=== PATIENT | male | born 1940 | race Caucasian/White ===

== ENCOUNTER → 2017-10-24 | Outpatient (CLI) | payer OTHER ==
[~2017-10-24] VITALS: Ht 167.6 cm; Wt 97.2 kg
[~2017-10-24] MED LIST: AMLO10TA2 PO; ATOR40TA16 PO; CHLORHEXIDINE GLUCONATE 2 % 1 PACK (2 CLOTHS) TOPICAL PRN; GLIP10TA6 PO; INSU1INJ13 SQ; LACTATED RINGER'S 1000 ML IV PRN; LEVO175T2 PO; LIDOCAINE HCL 1% PF 5 ML SYRINGE OTHER ONE; LORA0.5T PO; METOPROLOL TARTRATE 25 MG TAB PO PRN; NOVOINJ3 SQ; PANT40TA3 PO; POVIDONE IODINE 5% (ANTISEPSIS KIT) 4 APPLICATIONS EACH NARE PRN; PROPOFOL 200 MG/20 ML AMP IV ONE; SODIUM CHLORID 0.9% 500 ML IV PRN; TAMS0.4C4 PO; VITA100064 PO
--- NOTE | 2017-10-24 10:42 | GIPROC ---
[facility] [address] [facility]. [facility], [address] FLEXIBLE SIGMOIDOSCOPY PROCEDURE REPORT EXAM DATE: 10/24/2017 PATIENT NAME: Julio Mcqueen MR #: [id number] BIRTHDATE: 1940 ORDER #: [id number] ATTENDING: Alondra Soliz MD APPRAISER REAL ESTATE: Radha Newberry and Lukas Saleh STATUS: outpatient INDICATIONS: The patient is a 77 yr old male here for a flexible sigmoidoscopy due to hematochezia PROCEDURE PERFORMED: Flexible Sigmoidoscopy with ablation therapy MEDICATIONS: Per Anesthesia and None. ESTIMATED BLOOD LOSS: None CONSENT: The patient understands the risks and benefits of the procedure and understands that these risks include, but are not limited to: sedation, allergic reaction, infection, perforation and/or bleeding. Alternative means of evaluation and treatment include, among others: physical exam, x-rays, and/or surgical intervention. The patient elects to proceed with this endoscopic procedure. medical equipment was checked for proper function. Hand hygiene and appropriate measures for infection prevention was taken. After the risks, benefits and alternatives of the procedure were thoroughly explained, Informed consent was verified, confirmed and timeout was successfully executed by the treatment team. A digital rectal exam revealed external hemorrhoids The Pentax EG-[id number] endoscope was introduced through the anus and advanced to the sigmoid colon. The prep was good. The instrument was then slowly withdrawn as the colon was fully examined. COLON FINDINGS: A 5 x 3cm circumferential diffuse patch of abnormal mucosa was found in the rectum. The mucosa was friable, ulcerated and bleeding. Destruction of lesion via ablation was attempted. Bleeding from maneuver treated with cautery. Argon plasma coagulation was used. Care was given to ensure that the lumen was suctioned well. Retroflexed views revealed internal hemorrhoid The scope was then completely withdrawn from the patient and the procedure terminated. ADVERSE EVENTS: There were no complications. IMPRESSIONS: 1. 5 x 3cm circumferential diffuse abnormal mucosa was found in the rectum; The mucosa was friable, ulcerated and bleeding; Destruction of lesion via ablation was attempted 2. Retroflexed views revealed internal hemorrhoid 3. Revealed external hemorrhoids RECOMMENDATIONS: 1. Continue surveillance 2. Hydrocortisone supp 25mg TN bid x 07 days RECALL: Return 3 months Flexible Sigmoidoscopy Alondra Soliz MD eSigned: Alondra Soliz MD 10/24/2017 10:41 AM cc: Ramila Sanchez M.D.
[2017-10-24 10:46] VITALS: BP 125/63; PULSE 50; RESP 18; TEMP 97.7; O2SAT 98
--- NOTE | 2017-10-24 20:16 | EKG ---
Date Performed: 10/24/2017 Time Performed: 08:29:23 PTAGE: 77 years EKG: SINUS BRADYCARDIA INTRAVENTRICULAR CONDUCTION DELAY NONSPECIFIC ST & T-WAVE CHANGES NO PRIO R TRACING FOR COMPARISON ABNORMAL ECG NO PREVIOUS TRACING DOCTOR: Estephania Hayes Interpretating Date/Time 10/24/2017 20:15:33
== END ==
LOC: HSDC 08:03
PROVIDERS: ATTEND Internal Medicine Gastroenterology
DX: K62.7 Radiation proctitis (principal); K64.4 Residual hemorrhoidal skin tags; K64.8 Other hemorrhoids; K92.1 Melena; D64.9 Anemia, unspecified; E11.9 Type 2 diabetes mellitus without complications; K21.9 Gastro-esophageal reflux disease without esophagitis; R94.31 Abnormal electrocardiogram [ECG] [EKG]
CPT/HCPCS: 93005

== ENCOUNTER → 2017-11-29 | Day surgery (SDC) | payer MEDICARE ==
[~2017-11-29] MED LIST changes: -CHLORHEXIDINE GLUCONATE 2 % 1 PACK (2 CLOTHS) TOPICAL PRN; -LACTATED RINGER'S 1000 ML IV PRN; -LIDOCAINE HCL 1% PF 5 ML SYRINGE OTHER ONE; -METOPROLOL TARTRATE 25 MG TAB PO PRN; -POVIDONE IODINE 5% (ANTISEPSIS KIT) 4 APPLICATIONS EACH NARE PRN; -PROPOFOL 200 MG/20 ML AMP IV ONE; -SODIUM CHLORID 0.9% 500 ML IV PRN
== END | disposition home or self-care (01) ==
LOC: ESDC 10:20
PROVIDERS: ATTEND Internal Medicine Gastroenterology
DX: K62.5 Hemorrhage of anus and rectum (principal); Z53.9 Procedure and treatment not carried out, unspecified reason
CPT/HCPCS: 99211; G0463

== ENCOUNTER 2018-06-20 05:55 | Inpatient (IN) ==
[2018-06-20] MEDS ORDERED: Chlorhexidine Gluconate 2% 1 Pack (2 Cloths) TOPICAL ONE (06:28)
[2018-06-20] MEDS ORDERED: Metoprolol Tartrate 25 MG Tablet PO ONE (06:28)
[2018-06-20] MEDS ORDERED: Aspirin 325 MG Tablet PO SCH (06:30)
[2018-06-20] MEDS ORDERED: Sod Chloride 0.9% Inj 400 ML IV.SIG SCH (06:30)
[2018-06-20] MEDS ORDERED: Mupirocin 2% Nasal Oint Topical Syringe EACH NARE SCH (06:30)
[2018-06-20] MEDS ORDERED: Chlorhexidine Gluconate 2% 1 Pack (2 Cloths) TOPICAL SCH (06:30)
[2018-06-20] MEDS ORDERED: Sodium Chlor 0.9% Inj 500 ML IV.SIG SCH (07:00)
[2018-06-20] MEDS ORDERED: ceFAZolin 2 GM Premix Inj 2 GM/50 ML PIGGYBACK IV.SIG SCH (07:00)
[2018-06-20] MEDS ORDERED: Heparin 10,000 UNITS/10 ML Vial (for IV use) ONE (10:55)
[2018-06-20] MEDS ORDERED: Protamine Sulfate Inj 50 MG/5 ML Vial ONE (10:55)
[2018-06-20] MEDS ORDERED: Sodium Chlor 0.9% Inj 500 ML IV.CONT ONE (10:57)
[2018-06-20] MEDS ORDERED: Labetalol HCl Inj 100 MG/20 ML Vial IV.CONT ONE (10:57)
[2018-06-20] MEDS ORDERED: Phenylephrine/NS 1000 MCG/10ML Syringe IV.PUSH ONE (10:57)
[2018-06-20] MEDS ORDERED: Lidocaine PF 1% Inj 5 ML Syringe OTHER ONE (10:57)
[2018-06-20] MEDS ORDERED: Normosol-R pH 7.4 Inj 1,000 ML IV.CONT ONE (10:57)
--- NOTE | 2018-06-20 11:12 | MH ---
cc: Vidal Tidwell MD DATE OF ADMISSION: 06/20/2018 INDICATIONS: Severe aortic valve stenosis. HISTORY OF PRESENT ILLNESS: This is a 77-year-old gentleman, who follows with Dr. Hamm in the outpatient setting. The patient has prior history of renal cancer, diabetes, hypertension, and chronic kidney disease. The patient also has a history of progressive aortic valve stenosis. The patient recently had a development of right lower extremity pain, and was found to have occlusion of the right superficial femoral artery, and underwent percutaneous intervention at [facility]. Since then, he has done fairly well. He is now here for consideration of elective transcatheter aortic valve replacement. The patient had been evaluated by 2 cardiothoracic surgeons, and felt to be an intermediate risk for surgical aortic valve replacement. PAST MEDICAL HISTORY Aortic valve stenosis, diabetes, hypertension, renal cancer, chronic kidney disease, coronary artery disease, status post percutaneous coronary intervention; peripheral arterial disease, status post peripheral intervention. SOCIAL HISTORY: He quit smoking in 2011. Denies any alcohol or drug use. FAMILY HISTORY: Denies a family history of early coronary disease or sudden cardiac . REVIEW OF SYSTEMS: A 12-point review of system was performed, negative unless otherwise as mentioned in history of present illness. PHYSICAL EXAMINATION: VITAL SIGNS: Temperature is 98.2, pulse is 65, blood pressure is 179/82 mmHg. GENERAL: Alert and oriented x3, in no acute distress. HEENT: Shows pupils reactive to light and accommodation. Extraocular movements are intact. NECK: No jugular venous distention. No thyromegaly or lymphadenopathy. No carotid bruits. LUNGS: Clear to auscultation bilaterally. CARDIOVASCULAR: Regular with a 3/6 crescendo/decrescendo murmur ABDOMEN: Nontender, nondistended with good bowel sounds. No hepatosplenomegaly. EXTREMITIES: Show no clubbing, cyanosis or edema. Good peripheral pulses. NEUROLOGIC: Cranial nerves intact. Motor and sensory grossly intact. LABORATORY DATA: Hemoglobin 11.2, platelet count 160, white blood cell count 5.5. Sodium 136, potassium 4.4, BUN is 24, creatinine is 2.23. INR is 1.0. PREOPERATIVE EVALUATION: STS Score 5.8%. [place] [employer] functional class III symptoms. BMI 33.3. 2/4 frailty scoring. Electrocardiogram shows sinus arrhythmia with first-degree atrioventricular block. Pulmonary function test shows [id number] obstructive ventilatory defect with an FEV1 of 1.43. Echocardiogram, 04/03/2018 shows peak velocity 4.31 meters per second, mean gradient 44 mmHg, calculated valve area of 0.7 cm2. Ejection fraction 55%, aortic insufficiency, mild mitral regurgitation. Coronary angiography: Mid left anterior descending coronary artery was 70% to 80% stenosis, status post drug-eluting stent placement. Computed tomography analysis on 04/30/2018 shows short annulus diameter 20.6, longest diameter 38.3, and there were areas 471 mm2, sinus Valsalva 33.6 mm, sinotubular junction 28.3 mm. Left coronary height is 7.6 mm and right coronary height is 18.4 mm. Implant angle is EDGARD 0, caudal 0. Minimal luminal diameter right lower extremity 7.1 mm, left lower extremity 6.8 mm. ASSESSMENT: This is a 78-year-old gentleman with diabetes, renal and prostate cancer with a nephrectomy, chronic kidney disease, hypertension, peripheral arterial disease, coronary artery disease, status post percutaneous coronary intervention. The patient is considered intermediate risk for surgical aortic valve replacement. PLAN: We are going to plan for 26 mm Alamo S3 bioprosthetic valve implant from a right lower extremity access. We will do the best we can to minimize contrast administration. His sinuses appear to be generous, but his left main has slow clearance, so we potentially will consider protecting the left main. MD BRENDAN Iglesias/ , 10:41 AM , 10:55 AM
[2018-06-20] MEDS ORDERED: Sugammadex Inj 200 MG/2 ML Vial IV.PUSH ONE (12:22)
[2018-06-20] MEDS ORDERED: Iohexol Inj 350 MG/ML 100 ML Bottle (for RAD Diag) IVCONTRAST ONE (13:06)
--- NOTE | 2018-06-20 13:07 | P.OP ---
Date of procedure: 06/20/18 Anesthesia: GETA Surgeon: Florin Saldana MD Operation and Findings: PREOPERATIVE DIAGNOSIS: 1. Severe Symptomatic Aortic stenosis. 2. CHF 3. Mild aortic Insufficiency 4. Coronary artery disease status post PCI 5. Chronic kidney disease 6. Peripheral vascular occlusive disease POSTOPERATIVE DIAGNOSIS: Same OPERATION PERFORMED: 1. Transcatheter Aortic Valve Replacement (TAVR) with an Alamo 26 mm Cleve 3 Tissue Valve. 2. Balloon Aortic Valvuloplasty 3. Aortogram. 4. Percutaneous Left Femoral Vein Access and Bilateral Common Femoral Artery Access 5. Perclose closure of Right Common Femoral artery. 6. Vascade closure of Left Common Femoral artery and vein. 7. Fluoroscopy SURGEON: Florin Saldana MD CO-SURGEON: Vidal Tidwell MD MANAGER TALENT ACQUISITION SURGEON: Brandi Khoury MD CUSTOMER EXPERIENCE RETAIL CLERK: BLAKE Griggs MD ANESTHESIA: GETA PROCEDURE: The risks, benefits, complications, treatment options, and expected outcomes were discussed with the patient. The possibilities of reaction to medication, pulmonary aspiration, perforation of viscus, bleeding, recurrent infection, the need for additional procedures, failure to diagnose a condition, and creating a complication requiring transfusion or operation were discussed with the patient. The patient concurred with the proposed plan, giving informed consent. The site of surgery properly noted/marked. The patient was taken to the hybrid operating room and the procedure verified as Transcatheter Aortic Valve Replacement. A Time Out was held and the above information confirmed. Standard monitoring lines and Rodríguez catheter were placed. General anesthesia was induced. The patient was prepped and draped in a sterile fashion. Initially, the left femoral arterial and venous access was acquired using a Seldinger percutaneous technique. The details of this procedure were dictated under separate note by cardiology. Once a pigtail was positioned in the aortic annulus and a temporary transvenous pacemaker wire was placed in the right ventricular apex and tested, the right femoral artery was accessed using a needle followed by a guidewire under fluoroscopic guidance. The patient was heparinized and 2 Perclose devices deployed for later closure. Serial dilators were used to dilate the left femoral artery to 14 Greenlandic caliber. The Alamo sheath was then inserted into the external iliac artery up to the distal abdominal aorta. Arch aortography was performed to define the implant view. A balloon aortic valvuloplasty was then performed using a 23 x 4 balloon with rapid pacing. Given the preoperative findings of a low left main coronary ostia, it was decided to protect the left main. Therefore a 3.0 stent was parked in the LAD for later percutaneous access should there be compromise to the left main perfusion. A 26 Alamo Cleve 3 transcatheter aortic valve was then positioned in the annulus and deployed with the patient being rapidly paced. Following deployment, the valve apparatus was withdrawn and arch aortography and LUZ were performed to assess the valve. There appeared to be no compromise to the left main ostium or its perfusion and therefore the stent was withdrawn and removed. The valve had no perivalvular leak. Gradients were then measured and the sheath was removed while securing the Perclose sutures for hemostasis. Protamine was administered. The left arterial and Venous access sites were closed using the Vascade device. Sterile dressings were placed. At the end of the operation, all sponge, instruments, and needle counts were correct. The patient was transferred to the CVICU in stable condition. Findings: No PVL Implants: 26 Cleve 3 tissue valve Complications: None Disposition: to CVICU in stable condition
--- NOTE | 2018-06-20 13:26 | P.PCN ---
Date of procedure: 06/20/18 Pre-op diagnosis: severe aortic stenosis Procedure: Procedure: Transesophageal Echocardiography Diagnosis: Severe aortic stenosis Indications: Perioperative planning for transcatheter aortic valve replacement Consent: Obtained Anesthesia: General endotracheal anesthesia Description of the Procedure: The patient was sedated and mechanically ventilated. The echo probe was inserted easily and without resistance. At the conclusion of the procedure, the echo probe was removed. Please see detailed echocardiogram report for formal findings. Preliminary Findings (not confirmed): Pre-procedure: 1) mildly depressed LV EF, estimated at 45% 2) severe aortic stenosis 3) mild aortic regurgitation 4) mild mitral regurgitation 5) no pericardial effusion 6) No evidence of intra-atrial shunting by color flow Doppler, but questionably positive bubble study. Please see finalized echo report for further details. Post-procedure: 1) s/p successful placement of transcatheter aortic valve 2) no evidence of bioprosthetic valve stenosis 3) no perivalvular leak 4) no pericardial effusion 5) no regional wall motion abnormalities The patient tolerated the procedure well with no hemodynamic instability. There were no immediate complications noted. There was minimal EBL. I personally performed the procedure.
[2018-06-20] MEDS ORDERED: Labetalol HCl Inj 100 MG/20 ML Vial IV.PUSH PRN (13:34)
[2018-06-20] MEDS ORDERED: Dextrose 50% in Water 50 ML Vial IV.PUSH PRN (13:35)
--- NOTE | 2018-06-20 13:37 | P.CONCC ---
History of Present Illness Service: Critical Care Medicine Consult date: 06/20/18 Requesting Physician: Vidal Tidwell Reason for Consult: perioperative management of medical comorbidities Primary Care Provider: Charli Montes MD History of Present Illness: This is a 78-year-old male with chronic kidney disease and severe aortic stenosis who presents for transcatheter aortic valve replacement. He underwent uncomplicated procedure via groin access. He arrives to the CVICU in stable and extubated condition. Due to his somnolence arousing from anesthesia complete review of systems is unobtainable. Limited review of systems is negative for chest pain, shortness of breath, nausea, vomiting, sore throat, headache. Review of Systems unobtainable due to mental status PMFSH - History History Provided By: Patient - Tobacco History Second Hand Smoke Exposure: No Smoking Status: Former smoker - Alcohol History How Often Do You Have a Drink Containing Alcohol: Never Medications and Allergies Active Medications: Active Medications Aspirin (Aspirin) 325 mg PO BRIM CURLER ERIN Stop: 06/23/18 06:25 Last Admin: 06/20/18 07:01 Dose: Not Given Chlorhexidine Gluconate (Chlorhexidine 2% Cloth) 3 pack TOPICAL BRIM CURLER ERNI Stop: 06/23/18 06:25 Last Admin: 06/20/18 07:02 Dose: Not Given Cefazolin Sodium/Dextrose (Ancef 2 Gm Premix Inj) 2 gm in 50 mls @ 100 mls/hr IV.SIG ONCE ERIN Stop: 06/23/18 06:25 Last Infusion: 06/20/18 11:32 Dose: Infused Lactated Ringer's (Lr 1000 Ml Inj) 1,000 mls @ 30 mls/hr IV.SIG .Q24H ERIN Stop: 06/21/18 06:29 Last Admin: 06/20/18 07:00 Dose: Not Given Sodium Chloride (Ns Inj) 500 mls @ 30 mls/hr IV.SIG .Q10H [facility] Iohexol (Omnipaque 350 Inj) 45 ml IVCONTRAST ONCE ONE Stop: 06/20/18 13:07 Last Admin: 06/20/18 13:07 Dose: 45 ml Mupirocin (Bactroban 2% Nasal Oint) 1 applicatio EACH NARE BRIM CURLER ERIN Stop: 06/23/18 06:25 Last Admin: 06/20/18 07:02 Dose: Not Given Povidone Iodine (Betadine 5% Antisepsis Kit) 1 applicatio TOPICAL BRIM CURLER [facility] Stop: 06/23/18 06:25 Last Admin: 06/20/18 07:02 Dose: Not Given Allergies Allergy/AdvReac Type Severity Reaction Status Date / Time No Known Allergies Allergy Verified 06/20/18 06:49 Home Medications Medication Instructions Recorded Confirmed Type atorvastatin 40 mg PO DAILY 04/30/18 06/20/18 History glipizide 5 mg PO BID 04/30/18 06/20/18 History insulin aspart U-100 [Novolog 4 sliding scale dose SUBCUT TID 04/30/18 06/20/18 History Flexpen U-100 Insulin] insulin degludec [Tresiba 7 unit SUB-Q HS 04/30/18 06/20/18 History FlexTouch U-100] levothyroxine 175 mcg PO DAILY 04/30/18 06/20/18 History tamsulosin 0.4 mg PO DAILY 04/30/18 06/20/18 History aspirin [Aspir-81] 81 mg PO DAILY 06/08/18 06/20/18 History cholecalciferol (vitamin D3) 800 unit PO DAILY 06/08/18 06/20/18 History [Vitamin D3] clopidogrel 75 mg PO DAILY 06/08/18 06/20/18 History pantoprazole 40 mg PO DAILY 06/08/18 06/20/18 History amlodipine 10 mg PO DAILY 06/20/18 06/20/18 History lorazepam 0.5 mg PO DAILY 06/20/18 06/20/18 History Physical Exam Vital signs: Vital Signs 06/20/18 06:59 Temperature 36.8 C Pulse Rate 65 Respiratory Rate 18 Blood Pressure 179/82 H Pulse Oximetry 96 Intake & Output 06/19/18 06/20/18 06/20/18 18:59 06:59 18:59 Intake Total 1450 / 1450 Output Total 575 / 575 Balance 875 / 875 Weight 94.2 kg Intake: IV 50 / 50 Ancef 2 GM Premix Inj 2 gm In 50 / 50 50 ml @ 100 mls/hr IV.SIG ONCE [facility] Rx#:[id number] Anesthesia Amount 1400 / 1400 Output: Estimated Blood Loss 75 / 75 Urine Amount (Catheter) 500 / 500 Indwelling Temp Sensing 500 / 500 Catheter Other: Weight On Admission 94.6 kg Narrative: GENERAL: Frail elderly male, lying in bed, arousing from anesthesia HEENT: Normocephalic. Atraumatic. Pupils equal, round, reactive, conjugate. Mucous membranes are moist NECK: Trachea is midline. There is no JVD. right IJ introducer sheath with transvenous pacer in place, site is clean and dry, dressing intact. CHEST: unlabored. equal chest rise. nc o2. CARDIOVASCULAR: normal rate, regular rhythm. Transvenous pacer is set VVI at a backup rate of 50. not currently paced. ABDOMEN: Soft, nontender, nondistended. No guarding. MUSCULOSKELETAL: Pulses 2+. No peripheral edema. bilateral groin sites are clean and dry, no evidence of hematoma, dressing intact. distal LE pulses are Dopplerable. NEUROLOGICAL: RASS -2. Arousing from anesthesia. follows commands. moves all extremities. no focal deficits. - Urinary Catheter Management Indwelling Temp Sensing Catheter Cath placed during this visit: yes Reason for continuing: Hourly intake/output Insertion date: 06/20/18 Insertion time: 11:29 Assessment and Plan - Assessment and Plan Plan: Assessment: 78yM POD 0 s/p TAVR. admit to ICU for frequent neurovascular checks and close uop monitoring. S/p TAVR today via groin access - anticoagulation per fuse cutter - mivf - close uop monitoring - frequent neurovascular checks - frequent groin checks - OOB after flat time Hypertension - goal sbp < 180 - add back antihypertensives as needed Congestive Heart Failure secondary to valvulopathy - mivf today - may need diuresis beginning after POD 1 Chronic Kidney Disease, unknown stage - mivf - am bmp Diabetes - SSI - diabetic diet Hyperlipidemia - restart home statin BPH - restart flomax Hypothyroidism - restart home synthroid GERD - restart home ppi. advance diet after flat time SCDs AM CBC, BMP Critical care medicine will continue to follow while patient remains in the CVICU.
[2018-06-20] MEDS ORDERED: Morphine Sulfate Inj 2 MG/ML Vial IV.PUSH PRN (13:39)
[2018-06-20] MEDS ORDERED: Benzocaine/Menthol 15 MG/3.6 MG SF Lozenge BUCCAL PRN (13:39)
[2018-06-20] MEDS ORDERED: Acetaminophen 325 MG Tablet PO PRN (13:39)
[2018-06-20] MEDS ORDERED: Atropine Inj 1 MG/ML Vial IV.PUSH PRN (13:39)
[2018-06-20] MEDS ORDERED: fentaNYL Citrate Inj 100 MCG/2 ML Ampul ONE (13:44)
[2018-06-20] MEDS ORDERED: Sod Chloride 0.9% Inj 1,000 ML IV.CONT SCH (13:45)
[2018-06-20] MEDS ORDERED: Iohexol 350 MG/ML 50 ML Vial (for Cath Lab) IVCONTRAST ONE (13:52)
--- NOTE | 2018-06-20 14:06 | ECHRPT ---
Indication: CONCLUSIONS Mildly dilated left ventricle. Wall thickness is measured at the upper limits of normal. The left ventricular systolic function is low normal with an estimated ejection fraction in the rang e of 50- 55%. Mild thickening of the mitral valve leaflets. Trace mitral valve regurgitation. Trileaflet aortic valve. Aortic valve sclerosis is present. Diffuse calcification of the aortic valve. No aortic valve regurgitation. Severe aortic valve stenosis. status post transcatheter aortic valve replacement. BP: / HR: Rhythm: Technical Quality: Medications Complications Proc. Components FINDINGS LEFT VENTRICLE Mildly dilated left ventricle. Wall thickness is measured at the upper limits of normal. The left ventricular systolic function is low normal with an estimated ejection fraction in the rang e of 50- 55%. RIGHT VENTRICLE Normal right ventricular size and systolic function. LEFT ATRIUM The left atrial size is normal. RIGHT ATRIUM The right atrial size is normal. ATRIAL APPENDAGES Normal left atrial appendage size with no evidence of thrombus formation. ATRIAL SEPTUM Normal atrial septal thickness without atrial level shunting by limited color doppler interrogation. AORTA The aortic root and proximal ascending aorta are normal in size on limited imaging. MITRAL VALVE Mild thickening of the mitral valve leaflets. Trace mitral valve regurgitation. AORTIC VALVE Trileaflet aortic valve. Aortic valve sclerosis is present. Diffuse calcification of the aortic valve. No aortic valve regurgitation. Severe aortic valve stenosis. status post transcatheter aortic valve replacement. TRICUSPID VALVE Structurally normal tricuspid valve. No tricuspid valve stenosis or regurgitation. VESSELS The inferior vena cava is normal in size. PULMONARY VALVE The pulmonary valve is not well visualized. PERICADIUM No pericardial effusion. Vidal Tidwell MD, FACC (Electronically Signed) Final Date:20 June 2018 14:05
--- NOTE | 2018-06-20 14:09 | ECG ---
Date Performed: 06/20/2018 Time Performed: 06:14:46 PTAGE: 78 years EKG: Sinus arrhythmia. Left ventricular hypertrophy Nonspecific ST-T changes. Nonspecific ST-T c hanges are new. PREVIOUS TRACING : 06/08/2018 08.00 DOCTOR: Brandi Khoury M.D. Interpretating Date/Time 06/20/2018 14:08:11
--- NOTE | 2018-06-20 14:21 | P.PCN ---
Date of procedure: 06/20/18 Pre-op diagnosis: Severe aortic valve stenosis Procedure: mercerizer machine operator: Jett Tidwell MD Primary surgeon: Florin Saldana MD Cardiology second assist: Brandi Khoury MD Procedure performed: 1. Fluoroscopy with interpretation 2. Ascending aortography 3. Coronary angiography 4. Transesophageal echocardiogram 5. Transvenous temporary pacemaker placement 6. Aortic valvuloplasty 7. Transcatheter aortic valve replacement 8. Left heart catheterization Methods: Risks, benefits, and alternatives were discussed with the patient. Patient understood consented to the procedure. Both groins were prepped and draped in sterile fashion along with the chest wall. Left common femoral artery was accessed and a 6 Vincentian 11 cm sheath was placed without difficulty. Left femoral vein was accessed and a 5 Vincentian 11 cm sheath was placed without difficulty. Right common femoral artery was accessed with a micropuncture needle under fluoroscopic guidance. Digital subtraction angiography confirmed appropriate placement. An 8 Vincentian sheath was placed and upsized to a 16 Vincentian Alamo delivery sheath. Heparin was administered. Ascending aortography: A 5 Vincentian pigtail catheter was advanced to the ascending aorta. Ascending aortography was performed. All 3 aortic valve cusps were well visualized and put into parallax view. Transvenous temporary pacemaker placement: 6 Vincentian sheath was placed in the right internal jugular vein. A 5 Vincentian balloontipped temporary transvenous pacemaker was advanced to the right ventricular apex. Appropriate capture and pacing was confirmed. Transesophageal echocardiogram: See separate dictated report Coronary angiography: 1. Left main coronary is widely patent. 2. Left anterior descending coronary has stents present and are widely patent. Left coronary was selectively engaged with a 6 Vincentian XB LAD 3.5 guide catheter. 0.014 inch 180 cm Terumo run through wire was navigated down to the distal left anterior descending coronary artery. A 3.0 x 15 mm Rx resolute [place] drug-eluting stent was advanced into the left anterior descending coronary artery as a protective measure for potential left main coronary artery stenting , given the low takeoff for the left main off the left coronary cusp. Left heart catheterization: 6 Vincentian AL-1 catheters advanced descending aorta. A 0.035 inch Amplatz super stiff straight tip wire was advanced across the aortic valve without difficulty. The 6 Vincentian AL-1 catheter was advanced into the left ventricle. A standard 260 cm 0.035 inch J-wire was then advanced to the left ventricular apex. The AL-1 catheter was removed. A 5 Vincentian angled pigtail catheter was then advanced to the left ventricular apex and the standard J-wire removed. A 0.035 inch 260 cm [employer] Confida wire was then advanced to the left ventricular apex. The pigtail catheter was removed. Aortic valvuloplasty: A 23 x 40 mm Alamo aortic valvuloplasty balloon was then prepped and advanced over the wire. Under rapid pacing aortic valvuloplasty was performed. Repeat transesophageal echocardiogram showed moderate aortic valve insufficiency. The valvuloplasty balloon was then removed leaving the wire in place. Transcatheter aortic valve replacement: A 26 mm Alamo CP and S3 bioprosthetic valve was prepped. The device was advanced through the delivery sheath to the descending aorta. The balloon was pulled back into the stent. The stent was advanced over the arch in a flexed position and across the aortic valve. With rapid ventricular pacing and confirmation of appropriate placement by angiography through the guide catheter , the bioprosthetic valve was then slowly deployed. Repeat transesophageal echocardiography confirmed appropriate placement. No significant perivalvular leak was present. Selective angiography of the left main coronary artery showed no significant obstruction. The wire and coronary stent was then removed without deployment. The guide catheter was removed. The right common femoral artery 16 Vincentian sheath was then removed and 2 Perclose devices were deployed with good hemostasis. Two vascade devices were deployed successfully in the left common femoral artery and vein with good hemostasis. Conclusions: 1. Severe aortic valve stenosis 2. Successful aortic valvuloplasty 3. Successful transcatheter aortic valve replacement with bioprosthetic Alamo CP and S3 valve Plan: We will obtain a limited transthoracic echocardiogram. We will continue aspirin and Plavix. We will consult electrophysiology for evaluation. Heart rhythm was stable. Will monitor closely for any postprocedural complications Intraoperative post valve deployment transesophageal echocardiogram findings: 1. Post aortic valve area 3 cm square 2. Post implant mean aortic valve gradient 5 mmHg 3. Post implant peak velocity 1.696 cm/s 4. Aortic valve shows no insufficiency and no perivalvular leak
--- NOTE | 2018-06-20 15:22 | XR ---
EXAM DATE: 06/20/2018 1:41 PM EDT AGE/SEX: 78 years / Male INDICATIONS: Status post transcatheter aortic valve replacement. CLINICAL DATA: This is the patient's subsequent encounter. Patient reports that signs and symptoms h ave been present for 1 day and indicates a pain score of 0/10. MEDICAL/SURGICAL HISTORY: Hypertension. Diabetes mellitus type II. Nephrectomy, left. Periphe ral vascular stent. Coronary artery stent. COMPARISON: No prior exams available for comparison. FINDINGS: Central line in good position. Compensated cardiomegaly without overt failure. TAVR prosthesis eviden t. There is no pleural effusion or pneumothorax. Mild degenerative changes about both shoulders. CONCLUSION: Cardiomegaly without overt congestive failure. Electronically signed by: Elías Jain MD 06/20/2018 3:21 PM EDT
[2018-06-20 17:16] LABS: Calcium 7.6 mg/dL (8.5-10.1); Carbon Dioxide 27.8 meq/L (21.0-32.0); Potassium 3.8 meq/L (3.5-5.1)
[2018-06-20] MEDS: Insulin NovoLIN Regular Correctional Sugar Inj SQ SCH (18:07)
[2018-06-21] MEDS: Insulin NovoLIN Regular Correctional Sugar Inj SQ SCH ×3 (01:46→12:45)
[2018-06-21 05:19] LABS: Hematocrit 28.4 % (39.0-51.0); Hemoglobin 9.4 gm/dL (13.0-17.0); Mean Corpuscular HGB Conc 33.2 % (32.0-36.0); Mean Corpuscular Hemoglobin 27.9 pg (27.0-34.0); Mean Corpuscular Volume 84.1 fL (80.0-100.0); Mean Platelet Volume 7.8 fL (7.0-11.0); Platelet Count 105 th/mm3 (150-450); Red Blood Count 3.38 mil/mm3 (4.50-5.90); Red Cell Distribution Width 16.6 % (11.6-17.2)
[2018-06-21 05:43] LABS: Alanine Aminotransferase 19 U/L (12-78); Albumin 2.9 g/dL (3.4-5.0); Anion Gap 7 meq/L (5-15); Aspartate Aminotransferase 22 U/L (15-37); Blood Urea Nitrogen 20 mg/dL (7-18); Calcium 7.8 mg/dL (8.5-10.1); Carbon Dioxide 29.3 meq/L (21.0-32.0); Chloride 106 meq/L (98-107); Glomerular Filtration Rate 33 mL/min (>89); Glucose,Random 142 mg/dL (74-106); Potassium 4.3 meq/L (3.5-5.1); Sodium 142 meq/L (136-145)
[2018-06-21 05:46] LABS: Alkaline Phosphatase 108 U/L (45-117); Total Protein 6.4 g/dL (6.4-8.2)
[2018-06-21] MEDS ORDERED: Levothyroxine 75 MCG Tablet PO SCH (06:00)
[2018-06-21] MEDS ORDERED: Levothyroxine 100 MCG Tablet PO SCH (06:00)
--- NOTE | 2018-06-21 07:11 | P.PNCC ---
Subjective Subjective Remarks/Hospital Course: Hospital Course: This is a 78-year-old male with chronic kidney disease and severe aortic stenosis who presents for transcatheter aortic valve replacement. He underwent uncomplicated procedure via groin access. He arrives to the CVICU in stable and extubated condition. Due to his somnolence arousing from anesthesia complete review of systems is unobtainable. Limited review of systems is negative for chest pain, shortness of breath, nausea, vomiting, sore throat, headache. Subjective: 06/21: denies complaints. pain adequately controlled. no evidence of groin hematoma. was very intermittently paced via transvenous pacer yesterday- seen by Dr. Banuelos who turned down back-up rate, no more pacing events overnight. Objective Vital Signs / I&O: Vital Signs 06/20/18 06:59 06/20/18 14:00 06/20/18 15:00 Temperature 36.8 C 35.2 C L 35.2 C L Pulse Rate 65 60 62 Respiratory Rate 18 16 16 Blood Pressure 179/82 H Pulse Oximetry 96 98 98 06/20/18 16:00 06/20/18 19:00 06/20/18 20:00 Temperature Pulse Rate Respiratory Rate Blood Pressure Pulse Oximetry 98 99 92 L Intake & Output 06/20/18 06/20/18 06/21/18 06:59 18:59 06:59 Intake Total 2100 / 2100 1000 / 1000 Output Total 1175 / 1175 Balance 925 / 925 1000 / 1000 Weight 94.2 kg Intake: IV 450 / 450 1000 / 1000 NS Inj 1,000 ML @ 125 mls/hr IV 1000 / 1000 .CONT .Q8H ERIN Rx#:[id number] NS Inj 400 ML @ 200 mls/hr IV. 400 / 400 SIG .Q2H ERIN Rx#:[id number] Ancef 2 GM Premix Inj 2 gm In 50 / 50 50 ml @ 100 mls/hr IV.SIG ONCE ERIN Rx#:[id number] Oral 250 / 250 Anesthesia Amount 1400 / 1400 Output: Estimated Blood Loss 75 / 75 Urine Amount (Catheter) 1100 / 1100 Indwelling Temp Sensing 1100 / 1100 Catheter Other: Date of Last Bowel Movement 06/19/18 Weight On Admission 94.6 kg Result Diagrams: 06/21/18 04:20 06/21/18 04:20 Objective Remarks: GENERAL: Frail elderly male, lying in bed, no acute distress. HEENT: Normocephalic. Atraumatic. Pupils equal, round, reactive, conjugate. Mucous membranes are moist NECK: Trachea is midline. There is no JVD. right IJ introducer sheath with transvenous pacer in place, site is clean and dry, dressing intact. CHEST: unlabored. equal chest rise. nc o2. CARDIOVASCULAR: normal rate in the 70s, regular rhythm. Transvenous pacer is set VVI at a backup rate of 35. not currently paced. ABDOMEN: Soft, nontender, nondistended. No guarding. MUSCULOSKELETAL: Pulses 2+. No peripheral edema. bilateral groin sites are clean and dry, no evidence of hematoma, dressing intact. distal LE pulses are Dopplerable. NEUROLOGICAL: RASS 0. awake, alert. follows commands. moves all extremities. no focal deficits. Assessment and Plan - Assessment and Plan Plan: Assessment: 78yM POD 1 s/p TAVR. once pacer rate turned down, no more pacer spikes- likely just slow [place] ventricular rate. no evidence by telemetry of AV block. stable to transfer out of ICU. d/c pacer. 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 Chronic Kidney Disease, unknown stage - Cr stable. - am bmp Diabetes - SSI - diabetic diet Hyperlipidemia - home statin BPH - flomax Hypothyroidism - home synthroid GERD - home ppi. advance diet as tolerated SCDs AM CBC, BMP Critical care medicine will sign off.
--- NOTE | 2018-06-21 08:18 | P.DS ---
<Michael Troncoso - Last Filed: 06/21/18 08:14> Date of admission: 06/20/18 05:55 Primary care physician: Charli Montes MD Anticipated date of discharge: 06/21/18 Brief History from admission: This is a 77-year-old gentleman, who follows with Dr. Hamm in the outpatient setting. The patient has prior history of renal cancer, diabetes, hypertension, and chronic kidney disease. The patient also has a history of progressive aortic valve stenosis. The patient recently had a development of right lower extremity pain, and was found to have occlusion of the right superficial femoral artery, and underwent percutaneous intervention at [facility]. Since then, he has done fairly well. He is now here for consideration of elective transcatheter aortic valve replacement. The patient had been evaluated by 2 cardiothoracic surgeons, and felt to be an intermediate risk for surgical aortic valve replacement. Patient update on day of discharge: Doing well overnight. No chest pain or shortness of breath. Patient denies any issues with groin access sites. Hemoglobin and renal function overall stable from previous. Limited echo done today. DS: Medications - Discharge Medications Prescriptions: ferrous sulfate [FeroSul] 325 mg PO DAILY #30 tab DS: Summary Hospital Course: 78-year-old male with severe aortic stenosis who was admitted electively for TAVR 06/20/18. Patient underwent unremarkable perioperative course. - Time Spent with Patient Total time spent providing and/or coordinating discharge services: Greater than 30 minutes Exam Vital signs: Vital Signs 06/20/18 14:00 06/20/18 15:00 06/20/18 16:00 Temperature 95.4 F L 95.4 F L Pulse Rate 60 62 Respiratory Rate 16 16 Blood Pressure Pulse Oximetry 98 98 98 06/20/18 19:00 06/20/18 20:00 06/20/18 23:00 Temperature 97.9 F 98.5 F Pulse Rate 68 54 L Respiratory Rate 18 18 Blood Pressure 147/71 H 123/55 L Pulse Oximetry 99 92 L 99 06/21/18 03:00 Temperature 98.3 F Pulse Rate 70 Respiratory Rate 18 Blood Pressure 158/52 H Pulse Oximetry 99 Intake & Output 06/20/18 06/21/18 06/21/18 18:59 06:59 18:59 Intake Total 2100 / 2100 1240 / 1240 Output Total 1175 / 1175 275 / 275 Balance 925 / 925 965 / 965 Weight 211 lb 10.3 oz Intake: IV 450 / 450 1000 / 1000 NS Inj 1,000 ML @ 125 mls/hr IV 1000 / 1000 .CONT .Q8H ERIN Rx#:[id number] NS Inj 400 ML @ 200 mls/hr IV. 400 / 400 SIG .Q2H ERIN Rx#:[id number] Ancef 2 GM Premix Inj 2 gm In 50 / 50 50 ml @ 100 mls/hr IV.SIG ONCE ERIN Rx#:[id number] Oral 250 / 250 240 / 240 Anesthesia Amount 1400 / 1400 Output: Urine 275 / 275 Estimated Blood Loss 75 / 75 Urine Amount (Catheter) 1100 / 1100 Indwelling Temp Sensing 1100 / 1100 Catheter Other: # Voids 2 Date of Last Bowel Movement 06/19/18 Narrative: GENERAL: Well-developed well-nourished. In no acute distress. NECK: No carotid bruits. No JVD. CARDIOVASCULAR: Regular rate and rhythm. No murmur appreciated. Minimal ecchymosis bilateral groins with no tenderness and intact pulses. RESPIRATORY: No accessory muscle use. Clear to auscultation. Breath sounds equal bilaterally. MUSCULOSKELETAL: No clubbing or cyanosis. No edema. NEUROLOGICAL: Awake and alert. Normal speech. Results Procedures completed during hospitalization: TAVR 06/20/18 Labs on day of discharge: Labs from last 24 hours 06/21/18 06/21/18 06/21/18 08:07 05:57 04:20 WBC RBC Hgb Hct MCV MCH MCHC RDW Plt Count MPV Sodium 142 Potassium 4.3 Chloride 106 Carbon Dioxide 29.3 Anion Gap 7 BUN 20 H Creatinine 1.96 H Estimated GFR 33 L POC Glucose Pending 181 H Random Glucose 142 H Calcium 7.8 L Total Bilirubin 0.4 AST 22 ALT 19 Alkaline Phosphatase 108 Total Protein 6.4 Albumin 2.9 L MTS Gel Crossmatch Bld Prod Order Comment 06/21/18 06/21/18 06/20/18 04:20 01:40 17:56 WBC 6.0 RBC 3.38 L Hgb 9.4 L Hct 28.4 L MCV 84.1 MCH 27.9 MCHC 33.2 RDW 16.6 Plt Count 105 L D MPV 7.8 Sodium Potassium Chloride Carbon Dioxide Anion Gap BUN Creatinine Estimated GFR POC Glucose 173 H 194 H Random Glucose Calcium Total Bilirubin AST ALT Alkaline Phosphatase Total Protein Albumin MTS Gel Crossmatch Bld Prod Order Comment 06/20/18 06/20/18 15:58 06:21 WBC RBC Hgb Hct MCV MCH MCHC RDW Plt Count MPV Sodium 141 Potassium 3.8 Chloride 107 Carbon Dioxide 27.8 Anion Gap 6 BUN 22 H Creatinine 1.77 H Estimated GFR 37 L POC Glucose Random Glucose 144 H Calcium 7.6 L Total Bilirubin AST ALT Alkaline Phosphatase Total Protein Albumin MTS Gel Crossmatch See Detail Bld Prod Order Comment - Impressions ITS Impressions Chest X-Ray 06/20/18 13:41 CONCLUSION: Cardiomegaly without overt congestive failure. <Minor,Vidal - Last Filed: 06/21/18 08:31> Date of admission: 06/20/18 05:55 Primary care physician: Charli Montes MD DS: Diagnosis - Discharge Diagnosis (1) Severe aortic valve stenosis Status: Acute (2) S/P TAVR (transcatheter aortic valve replacement) Status: Acute (3) Chronic diastolic (congestive) heart failure Status: Acute (4) Coronary artery disease Status: Acute (5) History of percutaneous coronary intervention Status: Acute (6) Peripheral arterial disease Status: Acute DS: Summary Hospital Course: CKD - IVF yesterday. Cr improved. breathing stable. lungs clear. groins c/d/i Hb reduction likely hemodilutional. no active bleeding. tolerating plavix. - Time Spent with Patient Total time spent providing and/or coordinating discharge services: Less than 30 minutes Exam Vital signs: Vital Signs 06/20/18 14:00 06/20/18 15:00 06/20/18 16:00 Temperature 95.4 F L 95.4 F L Pulse Rate 60 62 Respiratory Rate 16 16 Blood Pressure Pulse Oximetry 98 98 98 06/20/18 19:00 06/20/18 20:00 06/20/18 23:00 Temperature 97.9 F 98.5 F Pulse Rate 68 54 L Respiratory Rate 18 18 Blood Pressure 147/71 H 123/55 L Pulse Oximetry 99 92 L 99 06/21/18 03:00 Temperature 98.3 F Pulse Rate 70 Respiratory Rate 18 Blood Pressure 158/52 H Pulse Oximetry 99 Intake & Output 06/20/18 06/21/18 06/21/18 18:59 06:59 18:59 Intake Total 2100 / 2100 1240 / 1240 Output Total 1175 / 1175 275 / 275 Balance 925 / 925 965 / 965 Weight 96 kg Intake: IV 450 / 450 1000 / 1000 NS Inj 1,000 ML @ 125 mls/hr IV 1000 / 1000 .CONT .Q8H ERIN Rx#:[id number] NS Inj 400 ML @ 200 mls/hr IV. 400 / 400 SIG .Q2H ERIN Rx#:[id number] Ancef 2 GM Premix Inj 2 gm In 50 / 50 50 ml @ 100 mls/hr IV.SIG ONCE ERIN Rx#:[id number] Oral 250 / 250 240 / 240 Anesthesia Amount 1400 / 1400 Output: Urine 275 / 275 Estimated Blood Loss 75 / 75 Urine Amount (Catheter) 1100 / 1100 Indwelling Temp Sensing 1100 / 1100 Catheter Other: # Voids 2 Date of Last Bowel Movement 06/19/18 - Constitutional no acute distress - Routine HEENT Exam Eye: Present: EOMI, PERRL - Routine Neck Exam Absent: JVD - Routine Respiratory Exam Present: CTA bilaterally - Routine Cardiovascular Exam Present: RRR. Absent: murmur - Routine Abdominal Exam Present: soft, normoactive bowel sounds - Routine Extremities Exam Absent: edema - Routine Neurological Exam Present: oriented X3, CN II-XII intact. Absent: sensory deficit, motor deficit Results Labs on day of discharge: Labs from last 24 hours 06/21/18 06/21/18 06/21/18 08:07 05:57 04:20 WBC RBC Hgb Hct MCV MCH MCHC RDW Plt Count MPV Sodium 142 Potassium 4.3 Chloride 106 Carbon Dioxide 29.3 Anion Gap 7 BUN 20 H Creatinine 1.96 H Estimated GFR 33 L POC Glucose 182 H 181 H Random Glucose 142 H Calcium 7.8 L Total Bilirubin 0.4 AST 22 ALT 19 Alkaline Phosphatase 108 Total Protein 6.4 Albumin 2.9 L MTS Gel Crossmatch Bld Prod Order Comment 06/21/18 06/21/18 06/20/18 04:20 01:40 17:56 WBC 6.0 RBC 3.38 L Hgb 9.4 L Hct 28.4 L MCV 84.1 MCH 27.9 MCHC 33.2 RDW 16.6 Plt Count 105 L D MPV 7.8 Sodium Potassium Chloride Carbon Dioxide Anion Gap BUN Creatinine Estimated GFR POC Glucose 173 H 194 H Random Glucose Calcium Total Bilirubin AST ALT Alkaline Phosphatase Total Protein Albumin MTS Gel Crossmatch Bld Prod Order Comment 06/20/18 06/20/18 15:58 06:21 WBC RBC Hgb Hct MCV MCH MCHC RDW Plt Count MPV Sodium 141 Potassium 3.8 Chloride 107 Carbon Dioxide 27.8 Anion Gap 6 BUN 22 H Creatinine 1.77 H Estimated GFR 37 L POC Glucose Random Glucose 144 H Calcium 7.6 L Total Bilirubin AST ALT Alkaline Phosphatase Total Protein Albumin MTS Gel Crossmatch See Detail Bld Prod Order Comment - Impressions ITS Impressions Chest X-Ray 06/20/18 13:41 CONCLUSION: Cardiomegaly without overt congestive failure. Discharge Plan - Discharge Order Discharge Orders: Discharge Order (Routine); Ordered 06/21/18 Ordered By: Michael Narayanan Discharge Details Anticipated Discharge Date: 06/21/18 - Physicians Team Primary Care Provider: Charli Montes Attending Provider: Vidal Tidwell Other Providers: Cee Barrientos MD ; Jessica Banuelos MD - Rxs /Orders / Referrals /Forms Prescriptions: New ferrous sulfate [FeroSul] 325 mg (65 mg iron) Tablet 325 mg PO DAILY Qty: 30 RF: 1 Continue amlodipine 10 mg tablet 10 mg PO DAILY aspirin [Aspir-81] 81 mg Tablet,Delayed Release (Dr/Ec) 81 mg PO DAILY atorvastatin 40 mg Tablet 40 mg PO DAILY cholecalciferol (vitamin D3) [Vitamin D3] 400 unit Tablet 800 unit PO DAILY clopidogrel 75 mg Tablet 75 mg PO DAILY glipizide 10 mg Tablet 5 mg PO BID insulin aspart U-100 [Novolog Flexpen U-100 Insulin] 100 unit/mL Insulin Pen 4 sliding scale dose subcut TID insulin degludec [Tresiba FlexTouch U-100] 100 unit/mL (3 mL) Insulin Pen 7 unit SUB-Q HS levothyroxine 150 mcg Capsule 175 mcg PO DAILY lorazepam 0.5 mg Tablet 0.5 mg PO DAILY pantoprazole 40 mg Tablet,Delayed Release (Dr/Ec) 40 mg PO DAILY tamsulosin 0.4 mg Capsule,Extended Release 24hr 0.4 mg PO DAILY Referrals: Charli Montes MD [Primary Care Provider] - See Instructions - Discharge Instructions Patient Printed Instructions: Transcatheter Aortic Valve Replacement (DC) Additional Instructions: Please call your PCP and make follow up appointment for next one to two weeks. Call Kalani Gray RN [employer] with any questions or concerns. 30 DAY ECHOCARDIOGRAM OFFICE WILL CALL WITH APPT. 30 DAY TAVR FOLLOW UP--Dr. Tidwell 07/19/18 AT 3PM [phone] [facility] Cardiology [address] [place], [place] [id number] 1 year ECHOCARDIOGRAM OFFICE WILL CALL WITH APPT. 1 year TAVR FOLLOW UP--Dr. Tidwell 06/20/19 AT 110PM [phone] [facility] Cardiology [address] [place], [place] [id number]
[2018-06-21] MEDS ORDERED: amLODIPine 10 MG Tablet PO SCH (09:00)
[2018-06-21] MEDS ORDERED: Ferrous Sulfate 325 MG Tablet PO SCH (09:00)
--- NOTE | 2018-06-21 10:07 | P.PNCV ---
- Note Subjective/Hospital Course: 77-year-old gentleman, who follows with Dr. Hamm in the outpatient setting. The patient has prior history of renal cancer, diabetes, hypertension, and chronic kidney disease. The patient also has a history of progressive aortic valve stenosis. He recently had a development of right lower extremity pain, and was found to have occlusion of the right superficial femoral artery, and underwent percutaneous intervention at [facility]. Since then, he has done fairly well. He is now here for consideration of elective transcatheter aortic valve replacement. The patient had been evaluated by 2 cardiothoracic surgeons, and felt to be an intermediate risk for surgical aortic valve replacement. PAST MEDICAL HISTORY: Aortic valve stenosis, diabetes, hypertension, renal cancer, chronic kidney disease, coronary artery disease, status post percutaneous coronary intervention; peripheral arterial disease, status post peripheral intervention. surgery: 06/20 PREOPERATIVE DIAGNOSIS: 1. Severe Symptomatic Aortic stenosis. 2. CHF 3. Mild aortic Insufficiency 4. Coronary artery disease status post PCI 5. Chronic kidney disease 6. Peripheral vascular occlusive disease POSTOPERATIVE DIAGNOSIS: Same OPERATION PERFORMED: 1. Transcatheter Aortic Valve Replacement (TAVR) with an Alamo 26 mm Cleve 3 Tissue Valve. 2. Balloon Aortic Valvuloplasty 3. Aortogram. 4. Percutaneous Left Femoral Vein Access and Bilateral Common Femoral Artery Access 5. Perclose closure of Right Common Femoral artery. 6. Vascade closure of Left Common Femoral artery and vein. 06/21 up in chair , no evidence of groin hematoma. was very intermittently paced via transvenous pacer yesterday- seen by Dr. Banuelos who turned down back-up rate, no more pacing events overnight possible dc home later today Objective: Vital Signs - 24 hr 06/20/18 14:00 06/20/18 15:00 06/20/18 16:00 Temperature 95.4 F L 95.4 F L Pulse Rate 60 62 Respiratory Rate 16 16 Blood Pressure Pulse Oximetry 98 98 98 06/20/18 19:00 06/20/18 20:00 06/20/18 23:00 Temperature 97.9 F 98.5 F Pulse Rate 68 54 L Respiratory Rate 18 18 Blood Pressure 147/71 H 123/55 L Pulse Oximetry 99 92 L 99 06/21/18 03:00 06/21/18 08:37 Temperature 98.3 F Pulse Rate 70 Respiratory Rate 18 Blood Pressure 158/52 H Pulse Oximetry 99 94 L GENERAL: A&O x 3 SKIN: Warm and dry. both groin sites intact no hematoma HEAD: Normocephalic. EYES: No scleral icterus. No injection or drainage. NECK: Supple, trachea midline. No JVD or lymphadenopathy. CARDIOVASCULAR: Regular rate and rhythm without murmurs, gallops, or rubs. soft SM RESPIRATORY: Breath sounds equal bilaterally. No accessory muscle use. GASTROINTESTINAL: Abdomen soft, non-tender, nondistended. MUSCULOSKELETAL: No cyanosis, or edema. BACK: Nontender without obvious deformity. No CVA tenderness. Labs: Laboratory Results - last 12 hr 06/21/18 06/21/18 06/21/18 01:40 04:20 04:20 WBC 6.0 RBC 3.38 L Hgb 9.4 L Hct 28.4 L MCV 84.1 MCH 27.9 MCHC 33.2 RDW 16.6 Plt Count 105 L D MPV 7.8 Sodium 142 Potassium 4.3 Chloride 106 Carbon Dioxide 29.3 Anion Gap 7 BUN 20 H Creatinine 1.96 H Estimated GFR 33 L POC Glucose 173 H Random Glucose 142 H Calcium 7.8 L Total Bilirubin 0.4 AST 22 ALT 19 Alkaline Phosphatase 108 Total Protein 6.4 Albumin 2.9 L 06/21/18 06/21/18 05:57 08:07 WBC RBC Hgb Hct MCV MCH MCHC RDW Plt Count MPV Sodium Potassium Chloride Carbon Dioxide Anion Gap BUN Creatinine Estimated GFR POC Glucose 181 H 182 H Random Glucose Calcium Total Bilirubin AST ALT Alkaline Phosphatase Total Protein Albumin Result Diagrams: 06/21/18 04:20 06/21/18 04:20 - Plan (2) S/P TAVR (transcatheter aortic valve replacement) Plan: on plavix, VSS ASA, statin possible dc home later today will defer further orders to cardiology will see prn
[2018-06-21 10:27] VITALS: BP 173/85; TEMP 98.5
--- NOTE | 2018-06-21 11:04 | ECHRPT ---
Indication: HEART FAILURE CONCLUSIONS The left ventricular systolic function is normal with an estimated ejection fraction in the range of 55-60%. Normal left ventricular size. Wall thickness is normal. No regional wall motion abnormalities are present. The left atrial size is moderately dilated. BP: / HR: Rhythm: MEASUREMENTS (Male / Female) Normal Values Technical Quality: 2D ECHO LV Diastolic Diameter PLAX 6.3 cm 4.2 - 5.9 / 3.9 - 5.3 cm LV Systolic Diameter PLAX 4.6 cm IVS Diastolic Thickness 1.1 cm 0.6 - 1.0 / 0.6 - 0.9 cm LVPW Diastolic Thickness 1.1 cm 0.6 - 1.0 / 0.6 - 0.9 cm LV Relative Wall Thickness 0.4 LVOT Diameter 1.8 cm LA Systolic Diameter LX 4.4 cm 3.0 - 4.0 / 2.7 - 3.8 cm M-MODE Aortic Root Diameter MM 1.8 cm AV Cusp Separation MM 1.5 cm DOPPLER AV Peak Velocity 261.0 cm/s AV Peak Gradient 27.2 mmHg AV Mean Gradient 14.0 mmHg AV Velocity Time Integral 50.4 cm AI Peak Velocity 166.0 cm/s AI Peak Gradient 11.0 mmHg AI Pressure Half Time 1815.0 ms LVOT Peak Velocity 114.0 cm/s LVOT Peak Gradient 5.2 mmHg LVOT Velocity Time Integral 24.1 cm AV Area Cont Eq vti 1.2 cm AV Area Cont Eq pk 1.1 cm FINDINGS LEFT VENTRICLE The left ventricular systolic function is normal with an estimated ejection fraction in the range of 55-60%. Normal left ventricular size. Wall thickness is normal. No regional wall motion abnormalities are present. RIGHT VENTRICLE Normal right ventricular size and systolic function. LEFT ATRIUM The left atrial size is moderately dilated. RIGHT ATRIUM The right atrial size is normal. ATRIAL SEPTUM Normal atrial septal thickness without atrial level shunting by limited color doppler interrogation. AORTA The aortic root and proximal ascending aorta are normal in size on limited imaging. MITRAL VALVE Structurally normal mitral valve. No mitral valve stenosis or regurgitation. AORTIC VALVE The aortic valve prosthesis is normal to two-dimensional, color flow and Doppler interrogation. TRICUSPID VALVE Structurally normal tricuspid valve. No tricuspid valve stenosis or regurgitation. PULMONARY VALVE The pulmonary valve is not well visualized. VESSELS The inferior vena cava is normal in size. PERICARDIUM No pericardial effusion. Vidal Tidwell MD, FACC (Electronically Signed) Final Date:21 June 2018 11:03
[2018-06-21 12:39] VITALS: PULSE 63; RESP 20; O2SAT 99
--- NOTE | 2018-06-21 19:18 | MB ---
cc: Jessica Banuelos MD DATE: 06/20/2018 REASON FOR CONSULTATION: Evaluation post TAVR. HISTORY OF PRESENT ILLNESS: Mr. Mcqueen is a 78-year-old gentleman with a history of high blood pressure, renal insufficiency, coronary artery disease, previous PTCA plus stent, peripheral vascular disease, former smoker, severe aortic stenosis who underwent transcatheter aortic valve replacement. Post procedure, I was consulted for evaluation for possible conduction disease. The chart was reviewed. The patient was evaluated. ALLERGIES: NONE REPORTED. SOCIAL HISTORY: The patient quit smoking in 2011. FAMILY HISTORY: Noncontributory to his current medical condition. MEDICATIONS: The gentleman is on aspirin. He is on Plavix. He is on Norvasc 10 mg a day, Lipitor 40 mg a day. Ancef was administered. He is on Levoxyl 75 mcg a day, Protonix and Flomax 0.4 mg a day. REVIEW OF SYSTEMS: The patient refers no chest pain, no chest discomfort, no fever. PHYSICAL EXAMINATION: GENERAL: Alert, fully oriented, in bed. VITAL SIGNS: Blood pressure 172/53, pulse 62, respiratory rate 18. LUNGS: Ventilated. NECK: Right jugular central line and a temporary pacemaker. CARDIOVASCULAR: S1, S2, irregular. No gallop. ABDOMEN: Obese. No mass. No bruit. EXTREMITIES: No edema. ELECTROCARDIOGRAM: Atrial fibrillation, diffuse ST changes. ASSESSMENT AND RECOMMENDATIONS: Ms. Mcqueen is currently stable status post transcatheter aortic valve replacement. He is in atrial fibrillation. The pacemaker was set at VVI 50. Whenever the heart rate drops below that, the patient is ventricular pacing. There is no sign of conduction disease. At this point, I reprogrammed the pacemaker to VVI 35. This gentleman is going to be observed. If there is no need for pacing support, he can be discharged home in the morning. Case discussed extensively with transcatheter aortic valve replacement team. I will see him only on a p.r.n. basis. MD ASIA Boyd/clarence , 06:11 PM , 06:21 PM
--- NOTE | 2018-06-21 20:08 | ECG ---
Date Performed: 06/21/2018 Time Performed: 04:01:26 PTAGE: 78 years EKG: Sinus rhythm Left anterior fascicular block Anterolateral ST-T wave abnormality, consider myocardial ischemia PREVIOUS TRACING : 06/20/2018 13.59 Since the previous tracing, demand electronic ventric ular pacing is no longer present DOCTOR: Neri Brown Interpretating Date/Time 06/21/2018 20:07:56
--- NOTE | 2018-06-21 20:42 | ECG ---
Date Performed: 06/20/2018 Time Performed: 13:59:02 PTAGE: 78 years EKG: Probable atrial fibrillation with slow ventricular response Demand pacing Prolonged QT inte rval Left anterior fascicular block Left ventricular hypertrophy Extensive ST-T wave abnormality, con plow and boring machine tender myocardial ischemia Abnormal ECG PREVIOUS TRACING : 06/20/2018 06.14 Since the previous tracing, demand pacing is new DOCTOR: Neri Brown Interpretating Date/Time 06/21/2018 20:42:04
== END 2018-06-21 15:15 | disposition home or self-care (01) ==
LOC: HSDI 05:55 → HDIC 05:58 → HCVI 13:50
PROVIDERS: ADMIT Internal Medicine; ATTEND Internal Medicine
PROC: TAVRHYB (ICD-10-PCS; 2018-06-20 11:00)